=== PATIENT | male | born 1940 | race Caucasian/White ===

== ENCOUNTER → 2016-05-03 | Outpatient (REF) | payer OTHER ==
[~2016-05-03] MED LIST: ALIG4CAP PO; ALLE180T33 PO; ASPI1TAB24 PO; FISH1000 PO; LEVA500T PO; LEVO175T2 PO; LISI10TA4 PO; LOPR50TA PO; MOME50SP; PERCOCET PO; SIMV40TA2 PO; TERA5CA PO; TRAM50TA2 PO; XARE10TA PO
== END ==
LOC: M LABSMT 09:45
PROVIDERS: ATTEND Nurse Practitioner Women's Health
DX: C61 Malignant neoplasm of prostate (principal); Z79.899 Other long term (current) drug therapy

== ENCOUNTER → 2016-05-19 | Outpatient (REF) | payer OTHER ==
[~2016-05-19] MED LIST changes: +LOPR1TAB6 PO; -LOPR50TA PO
== END ==
LOC: M SFHCCLAY 09:48
PROVIDERS: ATTEND Nurse Practitioner Women's Health
DX: C61 Malignant neoplasm of prostate (principal)

== ENCOUNTER → 2016-06-26 | Outpatient (REF) | payer OTHER ==
[2016-06-26 11:35] LABS: ALBUMIN 3.8 GM/DL (3.2-5.2); ALBUMIN/GLOBULIN RATIO 1.23 (1.00-1.93); ALKALINE PHOSPHATASE 68 U/L (45-117); ALT/SGPT 31 U/L (12-78); ANION GAP 9 MEQ/L (8-16); AST/SGOT 23 U/L (15-37); BILIRUBIN,TOTAL 0.5 MG/DL (0.2-1.0); BLOOD UREA NITROGEN 16 MG/DL (7-18); CALCIUM LEVEL 9.1 MG/DL (8.8-10.2); CARBON DIOXIDE LEVEL 29 MEQ/L (21-32); CHLORIDE LEVEL 105 MEQ/L (98-107); CREATININE FOR GFR 0.91 MG/DL (0.70-1.30); GLOMERULAR FILTRATION RATE > 60.0 (>42); GLUCOSE, FASTING 89 MG/DL (83-110); POTASSIUM SERUM 4.4 MEQ/L (3.5-5.1); SODIUM LEVEL 143 MEQ/L (136-145); TOTAL PROTEIN 6.9 GM/DL (6.4-8.2)
== END ==
LOC: M SFHCCLAY 09:12
PROVIDERS: ATTEND Internal Medicine
DX: I10 Essential (primary) hypertension (principal)

== ENCOUNTER → 2016-07-13 | Outpatient (REF) | payer OTHER | LOC: M SFHCCLAY 10:03 | PROVIDERS: ATTEND Urology | DX: C61 Malignant neoplasm of prostate (principal) ==

== ENCOUNTER → 2016-10-10 | Outpatient (REF) | payer OTHER | LOC: M SFHCCLAY 08:44 | PROVIDERS: ATTEND Urology | DX: C61 Malignant neoplasm of prostate (principal) ==

== ENCOUNTER → 2017-01-08 | Outpatient (REF) | payer OTHER ==
[~2017-01-08] MED LIST changes: +ASPI-161 PO; -ASPI1TAB24 PO; +LEVA1TAB2 PO; -LEVA500T PO
[2017-01-08 14:09] LABS: MEAN CORPUSCULAR HEMOGLOBIN 29.7 pg (27.0-33.0); MEAN CORPUSCULAR VOLUME 92.8 fl (80.0-96.0); RED CELL DISTRIBUTION WIDTH 13.3 % (11.5-14.5); WHITE BLOOD COUNT 6.1 K/mm3 (4.0-10.0)
[2017-01-08 14:57] LABS: ALBUMIN/GLOBULIN RATIO 1.48 (1.00-1.93); ALKALINE PHOSPHATASE 61 U/L (45-117); ALT/SGPT 36 U/L (12-78); ANION GAP 9 MEQ/L (8-16); AST/SGOT 19 U/L (15-37); BILIRUBIN,TOTAL 0.6 MG/DL (0.2-1.0); BLOOD UREA NITROGEN 16 MG/DL (7-18); CALCIUM LEVEL 9.4 MG/DL (8.8-10.2); CARBON DIOXIDE LEVEL 28 MEQ/L (21-32); CHLORIDE LEVEL 106 MEQ/L (98-107); CHOLESTEROL LEVEL 153 MG/DL (<200); CREATININE FOR GFR 0.87 MG/DL (0.70-1.30); GLOMERULAR FILTRATION RATE > 60.0 (>42); GLUCOSE, FASTING 83 MG/DL (83-110); POTASSIUM SERUM 4.3 MEQ/L (3.5-5.1); SODIUM LEVEL 143 MEQ/L (136-145); TOTAL PROTEIN 6.7 GM/DL (6.4-8.2); TRIGLYCERIDES LEVEL 71 MG/DL (<150)
== END ==
LOC: M SFHCPLAZ 10:05
PROVIDERS: ATTEND Internal Medicine
DX: C61 Malignant neoplasm of prostate (principal); I10 Essential (primary) hypertension; E78.00 Pure hypercholesterolemia, unspecified
CPT/HCPCS: 36415; 80053; 80061; 83735; 84443; 85027; G0463

== ENCOUNTER → 2017-01-16 | Outpatient (CLI) | payer OTHER | LOC: M SMT 14:15 | PROVIDERS: ATTEND Urology | DX: Z85.46 Personal history of malignant neoplasm of prostate (principal) ==

== ENCOUNTER → 2017-04-16 | Outpatient (REF) | payer OTHER | LOC: M SFHCCLAY 14:10 | PROVIDERS: ATTEND Urology | DX: Z85.46 Personal history of malignant neoplasm of prostate (principal) ==

== ENCOUNTER → 2017-07-04 | Outpatient (REF) | payer OTHER ==
[2017-07-04 14:10] LABS: ALBUMIN 3.8 GM/DL (3.2-5.2); ALBUMIN/GLOBULIN RATIO 1.31 (1.00-1.93); ALKALINE PHOSPHATASE 62 U/L (45-117); ALT/SGPT 65 U/L (12-78); ANION GAP 8 MEQ/L (8-16); AST/SGOT 32 U/L (7-37); BILIRUBIN,TOTAL 0.7 MG/DL (0.2-1.0); BLOOD UREA NITROGEN 19 MG/DL (7-18); CALCIUM LEVEL 8.7 MG/DL (8.8-10.2); CARBON DIOXIDE LEVEL 28 MEQ/L (21-32); CHLORIDE LEVEL 106 MEQ/L (98-107); CREATININE FOR GFR 0.92 MG/DL (0.70-1.30); GLOMERULAR FILTRATION RATE > 60.0 (>42); GLUCOSE, FASTING 83 MG/DL (70-100); MAGNESIUM LEVEL 2.1 MG/DL (1.8-2.4); POTASSIUM SERUM 4.4 MEQ/L (3.5-5.1); SODIUM LEVEL 142 MEQ/L (136-145); TOTAL PROTEIN 6.7 GM/DL (6.4-8.2)
== END ==
LOC: M SFHCCLAY 07:54
DX: I10 Essential (primary) hypertension (principal)
CPT/HCPCS: 83735

== ENCOUNTER 2017-10-08 10:25 | Day surgery (SDC) | payer OTHER ==
[2017-10-08] MEDS ORDERED: PROPOFOL 200 MG/20 ML VIAL As Ordered (10:30)
[2017-10-08] MEDS: NS 1,000 ML IV (10:45)
== END 2017-10-08 11:51 | disposition home or self-care (01) ==
LOC: M OPP 10:25
DX: Z12.11 Encounter for screening for malignant neoplasm of colon (principal); K57.30 Diverticulosis of large intestine without perforation or abscess without bleeding; Z86.010 Personal history of colon polyps; I10 Essential (primary) hypertension; E78.5 Hyperlipidemia, unspecified; E05.91 Thyrotoxicosis, unspecified with thyrotoxic crisis or storm; R23.3 Spontaneous ecchymoses; I25.10 Atherosclerotic heart disease of native coronary artery without angina pectoris; I48.91 Unspecified atrial fibrillation; Z79.01 Long term (current) use of anticoagulants; Z79.82 Long term (current) use of aspirin; Z79.899 Other long term (current) drug therapy; Z88.0 Allergy status to penicillin; Z88.8 Allergy status to other drugs, medicaments and biological substances; J30.2 Other seasonal allergic rhinitis; Z92.3 Personal history of irradiation; Z87.891 Personal history of nicotine dependence; Z80.3 Family history of malignant neoplasm of breast; Z80.1 Family history of malignant neoplasm of trachea, bronchus and lung; Z82.49 Family history of ischemic heart disease and other diseases of the circulatory system
CPT/HCPCS: G0105

== ENCOUNTER → 2017-11-06 | Outpatient (REF) | payer OTHER ==
[2017-11-11 09:05] LABS: PSA TOTAL <0.1 ng/mL (0.0-4.0)
== END ==
LOC: M SFHCCLAY 13:27
DX: Z85.46 Personal history of malignant neoplasm of prostate (principal)
CPT/HCPCS: 84154

== ENCOUNTER 2017-11-21 12:58 | Day surgery (SDC) | payer OTHER ==
[2017-11-21] MEDS ORDERED: LIDOCAINE 1% MDV 20ML VIAL SQ (13:15)
[2017-11-21] MEDS: ISOVUE-300 61% 50ML VIAL (Q9967) As Ordered (13:23)
[2017-11-21] MEDS: VANCOMYCIN 1000 MG/20 ML VIAL (J3370) As Ordered (13:23)
[2017-11-21] MEDS: LR 1,000 ML IV ×2 (14:01→19:39)
[2017-11-21] MEDS ORDERED: PROPOFOL 200 MG/20 ML VIAL As Ordered ×3 (14:39→17:05)
[2017-11-21] MEDS ORDERED: fentaNYL 100 MCG/2 ML INJECTION (J3010) As Ordered (14:40)
[2017-11-21] MEDS ORDERED: MIDAZOLAM INJ 2 MG/2 ML VIAL (J2250) As Ordered (14:40)
[2017-11-21] MEDS: VANCOMYCIN HCL 1,000 MG, VIAL MATE ADAPTER 1 EACH in D5W 250 ML IV (14:56)
[2017-11-21] MEDS: LIDOCAINE 1% SDV INJ 30 ML VIAL As Ordered (16:12)
[2017-11-21] MEDS ORDERED: ONDANSETRON 4MG/2ML VIAL (J2405) As Ordered (17:36)
[2017-11-21] MEDS ORDERED: dexameTHASONE 4 MG/ML 1ML VIAL (J1100) As Ordered (17:36)
[2017-11-21] MEDS ORDERED: KETOROLAC 60 MG/2 ML VIAL (J1885) As Ordered (17:36)
[2017-11-21] MEDS: MUPIROCIN 2% OINT 22 GM TUBE As Ordered (17:38)
[2017-11-21] MEDS ORDERED: fentaNYL 100 MCG/2 ML INJECTION (J3010) IV (18:30)
[2017-11-21] MEDS ORDERED: ONDANSETRON 4MG/2ML VIAL (J2405) IV (18:30)
[2017-11-21] MEDS ORDERED: PERCOCET 5MG/325MG TAB PO (18:30)
[2017-11-21] MEDS ORDERED: traMADol 50 MG TAB PO (19:00)
[2017-11-21] MEDS: LISINOPRIL 10 MG TAB PO (20:39)
[2017-11-21] MEDS: ASPIRIN 81 MG ENTERIC TAB PO (20:39)
[2017-11-21] MEDS: SIMVASTATIN 40 MG TAB PO (20:40)
[2017-11-21] MEDS: FLUTICASONE PROP 0.05% NASAL SPRAY 16 GM (FLONASE) NARES (20:40)
[2017-11-22] MEDS: LEVOTHYROXINE 100MCG TABLET (0.1MG) PO (05:21)
[2017-11-22] MEDS: LEVOTHYROXINE 75MCG TABLET (0.075MG) PO (05:21)
[2017-11-22] MEDS: ASPIRIN 81 MG ENTERIC TAB PO (09:40)
[2017-11-22] MEDS: LISINOPRIL 10 MG TAB PO (09:41)
[2017-11-22] MEDS: ACETAMINOPHEN TAB 650MG DOSE (2X325MG) PO (09:42)
[2017-11-22] MEDS: FLUTICASONE PROP 0.05% NASAL SPRAY 16 GM (FLONASE) NARES (09:42)
== END 2017-11-22 16:08 | disposition home or self-care (01) ==
LOC: M SDC 12:58 → M PCU 18:46
DX: I49.5 Sick sinus syndrome (principal); I44.0 Atrioventricular block, first degree; I48.0 Paroxysmal atrial fibrillation; R07.9 Chest pain, unspecified; R94.31 Abnormal electrocardiogram [ECG] [EKG]; E78.00 Pure hypercholesterolemia, unspecified; E66.3 Overweight; I25.10 Atherosclerotic heart disease of native coronary artery without angina pectoris; I25.2 Old myocardial infarction; I11.9 Hypertensive heart disease without heart failure; E03.9 Hypothyroidism, unspecified; E27.8 Other specified disorders of adrenal gland; K57.32 Diverticulitis of large intestine without perforation or abscess without bleeding; K21.9 Gastro-esophageal reflux disease without esophagitis; R29.898 Other symptoms and signs involving the musculoskeletal system; M12.9 Arthropathy, unspecified; M54.2 Cervicalgia; J32.9 Chronic sinusitis, unspecified; Z88.1 Allergy status to other antibiotic agents; Z88.8 Allergy status to other drugs, medicaments and biological substances; Z79.899 Other long term (current) drug therapy; Z79.01 Long term (current) use of anticoagulants; Z79.82 Long term (current) use of aspirin; Z86.010 Personal history of colon polyps; Z95.1 Presence of aortocoronary bypass graft; Z87.442 Personal history of urinary calculi; Z92.3 Personal history of irradiation; Z85.46 Personal history of malignant neoplasm of prostate
CPT/HCPCS: 33208

== ENCOUNTER → 2018-01-08 | Outpatient (REF) | payer OTHER ==
[2018-01-08 11:52] LABS: HEMATOCRIT 43.7 % (42.0-52.0); HEMOGLOBIN 14.2 g/dl (13.5-17.5); MEAN CORPUSCULAR HEMOGLOBIN 29.5 pg (27.0-33.0); MEAN CORPUSCULAR HGB CONC 32.5 g/dl (32.0-36.5); MEAN CORPUSCULAR VOLUME 90.7 fl (80.0-96.0); RED BLOOD COUNT 4.82 10^6/uL (4.30-6.10); WHITE BLOOD COUNT 5.7 10^3/uL (4.0-10.0)
[2018-01-08 12:20] LABS: POS COUNT POS FLAG
[2018-01-08 13:06] LABS: ALBUMIN 3.9 GM/DL (3.2-5.2); ALKALINE PHOSPHATASE 70 U/L (45-117); ALT/SGPT 27 U/L (12-78); ANION GAP 7 MEQ/L (8-16); AST/SGOT 16 U/L (7-37); BILIRUBIN,TOTAL 0.4 MG/DL (0.2-1.0); BLOOD UREA NITROGEN 20 MG/DL (7-18); CARBON DIOXIDE LEVEL 27 MEQ/L (21-32); CHLORIDE LEVEL 107 MEQ/L (98-107); CHOLESTEROL LEVEL 155 MG/DL (<200); CREATININE FOR GFR 0.81 MG/DL (0.70-1.30); GLOMERULAR FILTRATION RATE > 60.0 (>42); GLUCOSE, FASTING 88 MG/DL (70-100); HDL CHOLESTEROL 50 MG/DL (>40); LDL CHOLESTEROL 92 MG/DL (<100); MAGNESIUM LEVEL 2.2 MG/DL (1.8-2.4); NON-HDL-C 105 MG/DL; POTASSIUM SERUM 4.6 MEQ/L (3.5-5.1); SODIUM LEVEL 141 MEQ/L (136-145); TOTAL PROTEIN 6.6 GM/DL (6.4-8.2); TRIGLYCERIDES LEVEL 66 MG/DL (<150)
[2018-01-08 15:39] LABS: ALBUMIN/GLOBULIN RATIO 1.44 (1.00-1.93)
== END ==
LOC: M SFHCCLAY 07:39
DX: Z85.46 Personal history of malignant neoplasm of prostate (principal); I10 Essential (primary) hypertension; E78.00 Pure hypercholesterolemia, unspecified; E03.9 Hypothyroidism, unspecified
CPT/HCPCS: 83735

== ENCOUNTER → 2018-02-05 | Outpatient (REF) | payer OTHER ==
[2018-02-05 17:48] LABS: PROSTATIC SPECIFIC AG MONITOR < 0.01 NG/ML (< 4.0)
== END ==
LOC: M SFHCCLAY 13:16
DX: Z85.46 Personal history of malignant neoplasm of prostate (principal)
CPT/HCPCS: 84153

== ENCOUNTER → 2018-05-09 | Outpatient (REF) | payer MEDICARE ==
[~2018-05-09] MED LIST changes: +ASCO25TA PO; +ATEN25TA PO; +FISH500C PO; +META48.54 PO; +METO1TAB32 PO; -TERA5CA PO; +TERA5CAP3 PO; +XARE20TA PO
== END ==
LOC: M SFHCCLAY 13:11
PROVIDERS: ATTEND Internal Medicine
DX: Z85.46 Personal history of malignant neoplasm of prostate (principal)

== ENCOUNTER → 2018-07-09 | Outpatient (REF) | payer MEDICARE ==
[2018-07-09 18:36] LABS: BASO # 0.1 10^3/uL (0.0-0.2); BASO % 0.8 % (0.0-1.0); EOS # 0.2 10^3/uL (0.0-0.50); HEMOGLOBIN 15.6 g/dl (13.5-17.5); LYMPH # 1.5 10^3/uL (1.5-4.5); LYMPH % 20.2 % (24.0-44.0); MEAN CORPUSCULAR HEMOGLOBIN 29.8 pg (27.0-33.0); MEAN CORPUSCULAR HGB CONC 32.5 g/dl (32.0-36.5); MEAN CORPUSCULAR VOLUME 91.8 fl (80.0-96.0); MONO # 0.7 10^3/uL (0.0-0.8); MONO % 8.9 % (0.0-5.0); NEUTROPHILS % 67.7 % (36.0-66.0); RED BLOOD COUNT 5.23 10^6/uL (4.30-6.10); WHITE BLOOD COUNT 7.4 10^3/uL (4.0-10.0)
[2018-07-09 18:43] LABS: ALBUMIN 4.3 GM/DL (3.2-5.2); ALT/SGPT 32 U/L (12-78); BILIRUBIN,TOTAL 0.8 MG/DL (0.2-1.0); BLOOD UREA NITROGEN 17 MG/DL (7-18); CALCIUM LEVEL 9.2 MG/DL (8.8-10.2); CARBON DIOXIDE LEVEL 30 MEQ/L (21-32); CHLORIDE LEVEL 102 MEQ/L (98-107); CREATININE FOR GFR 0.98 MG/DL (0.70-1.30); GLOMERULAR FILTRATION RATE > 60.0 (>42); GLUCOSE, FASTING 90 MG/DL (70-100); MAGNESIUM LEVEL 2.3 MG/DL (1.8-2.4); POTASSIUM SERUM 4.6 MEQ/L (3.5-5.1); SODIUM LEVEL 138 MEQ/L (136-145); TOTAL PROTEIN 7.3 GM/DL (6.4-8.2)
[2018-07-09 18:49] LABS: FOLATE 15.5 NG/ML; VITAMIN B12 LEVEL 498 PG/ML
== END ==
LOC: M LABDRAWC 16:10 → M LABDRAW1 16:10
PROVIDERS: ATTEND Internal Medicine
DX: D69.6 Thrombocytopenia, unspecified (principal); I10 Essential (primary) hypertension

== ENCOUNTER → 2018-11-05 | Outpatient (REF) | payer MEDICARE ==
[~2018-11-05] MED LIST changes: -ASCO25TA PO; +VITA1TAB23 PO
== END ==
LOC: M SFHCCLAY 11:17
PROVIDERS: ATTEND Nurse Practitioner Women's Health
DX: Z85.46 Personal history of malignant neoplasm of prostate (principal)

== ENCOUNTER → 2019-01-07 | Outpatient (REF) | payer MEDICARE ==
[2019-01-07 13:24] LABS: BASO # 0.1 10^3/uL (0.0-0.2); BASO % 1.2 % (0.0-1.0); EOS # 0.3 10^3/uL (0.0-0.5); EOS % 5.3 % (0.0-3.0); HEMATOCRIT 45.8 % (42.0-52.0); HEMOGLOBIN 14.9 g/dl (13.5-17.5); LYMPH # 1.2 10^3/uL (1.5-5.0); LYMPH % 23.9 % (24.0-44.0); MEAN CORPUSCULAR HGB CONC 32.5 g/dl (32.0-36.5); MEAN CORPUSCULAR VOLUME 92.3 fl (80.0-96.0); MONO # 0.5 10^3/uL (0.0-0.8); MONO % 9.3 % (0.0-5.0); NEUTROPHILS # 3.1 10^3/uL (1.5-8.5); NEUTROPHILS % 59.7 % (36.0-66.0); RED BLOOD COUNT 4.96 10^6/uL (4.30-6.10); WHITE BLOOD COUNT 5.1 10^3/uL (4.0-10.0)
[2019-01-07 14:20] LABS: ALT/SGPT 23 U/L (12-78); BILIRUBIN,TOTAL 0.7 MG/DL (0.2-1.0); BLOOD UREA NITROGEN 14 MG/DL (7-18); CALCIUM LEVEL 9.1 MG/DL (8.8-10.2); CARBON DIOXIDE LEVEL 29 MEQ/L (21-32); CHLORIDE LEVEL 105 MEQ/L (98-107); CHOLESTEROL LEVEL 164 MG/DL (<200); CHOLESTEROL RISK RATIO 3.153 (<5); CREATININE FOR GFR 0.96 MG/DL (0.70-1.30); GLOMERULAR FILTRATION RATE > 60.0 (>42); GLUCOSE, FASTING 98 MG/DL (70-100); HDL CHOLESTEROL 52 MG/DL (>40); LDL CHOLESTEROL 94 MG/DL (<100); MAGNESIUM LEVEL 2.1 MG/DL (1.8-2.4); NON-HDL-C 112 MG/DL; POTASSIUM SERUM 4.5 MEQ/L (3.5-5.1); SODIUM LEVEL 141 MEQ/L (136-145); TOTAL PROTEIN 6.6 GM/DL (6.4-8.2); TRIGLYCERIDES LEVEL 92 MG/DL (<150)
== END ==
LOC: M SFHCCLAY 07:33
PROVIDERS: ATTEND Internal Medicine
DX: D69.6 Thrombocytopenia, unspecified (principal); I10 Essential (primary) hypertension; E78.00 Pure hypercholesterolemia, unspecified; Z86.010 Personal history of colon polyps; E03.9 Hypothyroidism, unspecified

== ENCOUNTER → 2019-05-13 | Outpatient (REF) | payer MEDICARE ==
[~2019-05-13] MED LIST changes: -SIMV40TA2 PO; +SIMV40TA20 PO
== END ==
LOC: M SFHCCLAY 13:01
PROVIDERS: ATTEND Nurse Practitioner Women's Health
DX: Z85.46 Personal history of malignant neoplasm of prostate (principal)

== ENCOUNTER 2019-06-02 04:31 | Observation (INO) | payer MEDICARE ==
[~2019-06-02] VITALS: Ht 180.3 cm; Wt 89.5 kg
[2019-06-02] MEDS ORDERED: LEVOTHYROXINE 150MCG TABLET (0.15MG) PO SCH (06:00)
[2019-06-02 06:35] VITALS: BP 146/90
[2019-06-02] MEDS ORDERED: MAALOX 30 ML SUSP *UDC PO PRN (06:45)
[2019-06-02] MEDS ORDERED: ACETAMINOPHEN TAB 650MG DOSE (2X325MG) PO PRN (06:45)
[2019-06-02] MEDS ORDERED: MOM 30ML SUSPENSION UDC PO PRN (06:45)
[2019-06-02 07:15] LABS: HEMATOCRIT 40.6 % (42.0-52.0); HEMOGLOBIN 13.4 g/dl (13.5-17.5); MEAN CORPUSCULAR VOLUME 90.8 fl (80.0-96.0); PLATELET COUNT, AUTOMATED 159 10^3/uL (150-450); RED BLOOD COUNT 4.47 10^6/uL (4.30-6.10); WHITE BLOOD COUNT 8.3 10^3/uL (4.0-10.0)
[2019-06-02 07:47] LABS: BLOOD UREA NITROGEN 13 MG/DL (7-18); CALCIUM LEVEL 8.3 MG/DL (8.8-10.2); CARBON DIOXIDE LEVEL 29 MEQ/L (21-32); CHLORIDE LEVEL 107 MEQ/L (98-107); CREATININE FOR GFR 0.88 MG/DL (0.70-1.30); GLOMERULAR FILTRATION RATE > 60.0 (>42); GLUCOSE, FASTING 95 MG/DL (70-100); NT-PRO BNP 431 PG/ML (<450); POTASSIUM SERUM 3.9 MEQ/L (3.5-5.1); SODIUM LEVEL 143 MEQ/L (136-145); TROPONIN I < 0.02 NG/ML (< 0.10)
[2019-06-02] MEDS ORDERED: ACET650T15 PO (08:14)
[2019-06-02] MEDS ORDERED: [UNRECOGNIZED DRUG - CODE] OU (08:14)
[2019-06-02] MEDS ORDERED: HEPARIN SOD (PORCINE) 5000 UNITS/ML VIAL (J1644 PER 1000UNITS) SC SCH (09:00)
[2019-06-02] MEDS ORDERED: FLUTICASONE PROP 0.05% NASAL SPRAY 16 GM (FLONASE) SCH (09:00)
[2019-06-02] MEDS ORDERED: GI COCKTAIL 50ML BTL(HYOSCYAMINE/MAALOX/LIDOCAINE VISCOUS)(1:3:1) PO ONE (09:00)
[2019-06-02] MEDS ORDERED: lisinopriL 10 MG TAB PO SCH (09:00)
[2019-06-02] MEDS ORDERED: METAMUCIL (PSYLLIUM) PACKET PO SCH (09:00)
[2019-06-02] MEDS ORDERED: ASPIRIN 81 MG ENTERIC TAB PO SCH (09:00)
[2019-06-02] MEDS ORDERED: DOCUSATE SODIUM 100 MG CAP PO SCH (09:00)
--- NOTE | 2019-06-02 11:07 | REP ---
Right upper quadrant ultrasound, stat request: There are multiple small linear calculi versus polyps along the gallbladder wall measuring 3 mm in diameter. There is no gallbladder wall thickening or pericholecystic fluid. There is no intrahepatic or extrahepatic biliary duct dilatation. The common biliary duct measures 4.5 mm in diameter. The hepatic parenchyma is homogeneous and otherwise unremarkable. The pancreas is obscured by bowel gas. The right kidney measures 10.8 x 4.5 x 6.0 cm and is normal size. There is no right renal hydronephrosis or calculus. There is no right renal solid mass. The there is a 2.0 cm Bosniak type 1 right renal cyst at the upper pole. There is no right upper quadrant ascites. Impression: There are multiple polyps versus adherent calculi in the gallbladder measuring approximate 3 mm in diameter each. No ultrasound evidence of acute cholecystitis or biliary duct dilatation. There is a 2.0 cm Bosniak type 1 right renal cyst at the upper pole. Electronically Signed by Bahnu Aguayo MD 06/02/2019 10:58 A
--- NOTE | 2019-06-02 11:13 | HPEPDOC ---
[facility] Medical History & Physical Date of Admission Jun 02, 2019 Date of Service: Jun 02, 2019 Attending Physician: CHARISSA AMOR MD History and Physical CHIEF COMPLAINT: Chest pain, shortness of breath transfer from [facility] HISTORY OF PRESENT ILLNESS: Patient is a 79-year-old man with a past medical history significant for atrial flutter, status post pacemaker, degenerative joint disease, hypercholesterolemia, hypertension, hypothyroidism, diverticulosis, presents as a tranfer [facility] after he presented with chest pain that started day before. Patient had reported a right sided chest p ain, That awoke him from sleep. It was accompanied by shortness of breath. On presentation to [facility]. He denied nausea, vomiting or diaphoresis. Due to patient's history of coronary disease with a bypass in 1997, he was transferred to [facility] for ongoing medical care. Prior to transfer. Patient had a negative workup, to include negative chest x-ray, negative troponin, and EKG without any ST changes. EKG was sinus at a rate of 80 with Q waves in the inferior lead. Prior to transfer. Patient had also reported that his chest Resolved. On interview this morning patient reports that his chest pain had resolved, he did complain of epigastric pain that was unassociated with food. Denies any nausea, vomiting, diarrhea recently. Denies any changes in diet. Denies any ana ght gain, denies any significant weight loss. Denies any GI bleeding. He does have a history of diverticulosis, and states that he alternates between diarrhea and constipation. However recently he has been having normal bowel movements without blood in stool PAST MEDICAL HISTORY: Atrial flutter, chest pain, chest wall pain, degenerative joint disease, hypercholesterolemia, hypertension, hypothyroidism PAST SURGICAL HISTORY: Double cardiac bypass in 1997, hernia repair, rotator cuff surgery SOCIAL HISTORY: Former smoker, former heavy alcohol user, no illicit drugs, lives at home with FAMILY HISTORY: Noncontributory due to advanced age ALLERGIES: Please see below. REVIEW OF SYSTEMS: CONSTITUTIONAL: No fevers, denies chills, denies weight loss, denies lethargy HEENT: No rhinorrhea, no itchy eyes, no congesion, No tonsilor exudates CARDIOVASCULAR: Had chest pain that has evolved, no palpitation, arrhythmia RESPIRATORY: Not cough, No SOB, no issues to report GASTROINTESTINAL: Admits to abdominal pain without nausea without vomiting without diarrhea. No difficulty swallowing HEMATOLOGICAL: No bleeding GENITOURINARY:No Issues HEMATOLOGIC/LYMPHATIC: No swelling, No bleeding HOME MEDICATIONS: Please see below. PHYSICAL EXAMINATION: VITAL SIGNS: Please see below SKIN: Warm, well perfused. LUNGS: Clear to auscultation bilaterally. HEART: Normal S1, S2. No murmurs, no rubs, no gallops ABDOMEN: Soft. Mild tenderness noted on patient's left lower quadrant, negative Plasencia sign. EXTREMITIES: Moves all extremities equally. No gross deformities. PULSES: 2+ upper and lower extremity LABORATORY DATA: See below. IMAGING: Gallbladder ultrasound pending Upper GI with small bowel follow-through and MICROBIOLOGY: Please see below. ASSESSMENT: Patient is a 79-year-old man presenting as hospital transfer for chest pain that had resolved prior to transfer. EKG was unremarkable with exception of Q waves in inferior leads, troponins was negative prior to transfer. Patient does not have any cardiac complaints at the moment. Complains of abdominal pain PLAN #Chest pain, -Troponins negative prior to admission. Troponins here has also been negative. Patient denies any chest pain for the moment. EKG does not show any acute changes. unlikely cardiac origin of pain will evaluate for abdominal and esophageal causes of pain. Could also be musculoskeletal in nature. #Abdominal pain secondary to diverticulosis secondary to gallbladder disease, secondary to constipation -Will Investigate with gallbladder ultrasound, as well as abdominal GI upper series. -Currently nothing by mouth for tests -Pain is adequately controlled #A Flutter -Sinus rhythm on monitor with occasional PVCs. Patient is status post pacemaker, follows with Dr. Corado for cardiology #Hypertension -Continue home meds #Hypothyroidism -Continue home meds #DVT prophylaxis - Heparin Vital Signs Vital Signs Date Time Temp Pulse Resp B/P (MAP) Pulse Ox O2 Delivery O2 Flow Rate FiO2 06/02/19 06:35 97.6 77 20 146/90 (108) 100 Room Air Laboratory Data Labs 24H Laboratory Tests 2 06/02/19 07:05: Nucleated Red Blood Cells % (auto) 0.0, Anion Gap 7L, Glomerular Filtration Rate > 60.0, Calcium Level 8.3L, Troponin I < 0.02, RX-Rmn-O-Type Natriuretic Peptide 431 CBC/BMP Laboratory Tests 06/02/19 07:05 Home Medications Scheduled Aspirin (Aspirin EC) 81 Mg Tab, 81 MG PO DAILY Levothyroxine Sodium (Levothyroxine Sodium) 175 Mcg Tab, 175 MCG PO 6XWK SKIPS Sunday Lisinopril (Lisinopril) 10 Mg Tab, 10 MG PO DAILY Mometasone Furoate Monohydrate (Nasonex) 120 [place]/17 Gm Naspr, 2 SPRAY NA DAILY Psyllium Seed (with Sugar) (Metamucil Powder) 48.57 % Pow, 1 PKT PO DAILY Rivaroxaban (Xarelto) 20 Mg Tab, 20 MG PO QPM Simvastatin (Simvastatin) 40 Mg Tab, 40 MG PO QHS Scheduled PRN Acetaminophen (Acetaminophen ER) 650 Mg Tablet.er, 650 MG PO TID PRN for PAIN Fexofenadine HCl (Pepper Allergy) 180 Mg Tab, 180 MG PO DAILYPRN PRN for NASAL CONGESTION Naphazoline/Hpm/Ps80/Zinc Sulf (Clear Eyes Complete Eye Drops) 15 Ml Drops, 1 DROP OU BID PRN for DRY EYES Allergies Coded Allergies: atorvastatin (Verified Adverse Reaction, Intermediate, muscle aches, 2/3) amoxicillin (Verified Adverse Reaction, Mild, NAUSEA, 2/3) clavulanic acid (Verified Adverse Reaction, Mild, NAUSEA, 2/3) Attending Note I have performed a history and physical examination of the patient and discussed the management with the resident. I have reviewed the resident's note and agree with the documented findings and the plan of care. EMMA STONE DO Jun 02, 2019 11:13 CHARISSA AMOR MD Jun 08, 2019 19:00
[2019-06-02] MEDS ORDERED: FEXOFENADINE 60 MG TAB PO PRN (11:15)
[2019-06-02 14:00] VITALS: BP 151/71
--- NOTE | 2019-06-02 18:22 | DS.PDOC ---
Discharge Summary General Date of Admission Jun 02, 2019 at 06:35 Date of Discharge 06/02/2019 Discharge Summary PROCEDURES PERFORMED DURING STAY: Chest pain, Transfer for [facility] ADMITTING DIAGNOSES: 1. Chest Pain 2. SOB DISCHARGE DIAGNOSES: Biliary colic now resolved. Multiple gall stones vs gall bladder polyps Possible acid reflux. Chest pain probably GI causes Acute coronary syndrome ruled out. SECONDARY DIAGNOSIS: Paroxysmal Atrial flutter Sick sinus syndrome with Pacemaker in place CAD s/p CABG Degenerative joint disease Hypercholesterolemia Hypertension Hypothyroidism COMPLICATIONS/CHIEF COMPLAINT: Chest Pain. HISTORY OF PRESENT ILLNESS: Patient is a 79-year-old man with a past medical history significant for atrial flutter, status post pacemaker, degenerative joint disease, hypercho lesterolemia, hypertension, hypothyroidism, diverticulosis, presents as a [facility] after he presented with chest pain that started day before. Patient had reported a right sided chest pain, That awoke him from sleep. It was accompanied by shortness of breath. [facility]. He denied nausea, vomiting or diaphoresis. Due to patient's history of coronary disease with a bypass in 1997, he was transferred to [facility] for ongoing medical care. Prior to transfer. Patient had a negative workup, to include negative chest x-ray, negative troponin, and EKG without any ST changes. EKG was sinus at a rate of 80 with Q waves in the inferior lead. Prior to transfer. Patient had also reported that his chest Resolved. On interview this morning patient reports that his chest pain had resolved, he did complain of epigastric pain that was associated with food spicy and oily food. Denies any nausea, vomiting, diarrhea recently. Denies any changes in t. Denies any weight gain, denies any significant weight loss. Denies any GI bleeding. He does have a history of diverticulosis, and states that he alternates between diarrhea and constipation. However recently he has been having normal bowel movements without blood in stool HOSPITAL COURSE: During the entirety of patient's admission. He denies chest pain. EKG was unremarkable. Troponins x2 were negative. Acute coronary syndrome was ruled out. He did however complain of abdominal pain. Abdominal pain was investigated with gallbladder ultrasound, which showed multiple polyps versus adherent calculi in the gallbladder measuring approximate 3 mm in diameter each. No ultrasound evidence of acute cholecystitis or biliary duct dilatation.. Because abdominal pain was almost resolved and the patient tolerated diet patient was felt safe to discharge home with instructions to follow-up for upper GI series. Patient verbalized understanding of the plan. He was discharged home in stable condition, with instructions to seek medical help should he develop severe abdominal pain, blood in stool, nausea, vomiting, diarrhea, worsening chest pain or short of breath. Patient verbalized understanding. He was instructed to follow-up with his PCP and tube roller at discharge. DISCHARGE MEDICATIONS: Please see below. ALLERGIES: Please see below. PHYSICAL EXAMINATION ON DISCHARGE: VITAL SIGNS: Please see below SKIN: Warm, well perfused. LUNGS: Clear to auscultation bilaterally. HEART: Normal S1, S2. No murmurs, no rubs, no gallops ABDOMEN: Soft. Mild tenderness noted on patient's left lower quadrant, negative Plasencia sign. EXTREMITIES: Moves all extremities equally. No gross deformities. PULSES: 2+ upper and lower extremity LABORATORY DATA: Please see below. IMAGING: Gall Bladder US: There are multiple polyps versus adherent calculi in the gallbladder measuring approximate 3 mm in diameter each. No ultrasound evidence of acute cholecystitis or biliary duct dilatation. There is a 2.0 cm Bosniak type 1 right renal cyst at the upper pole. PROGNOSIS: Fair ACTIVITY:As tolerated DIET: As tolerated DISCHARGE PLAN: To home DISPOSITION: Stable DISCHARGE INSTRUCTIONS: Follow up PCP in 1 to 2 weeks Referral to Surgery for evaluation for possible cholecystectomy Complete Upper Barium swallow and upper GI series with small bowel follow through DISCHARGE CONDITION: Stable TIME SPENT ON DISCHARGE: 35 minutes. Vital Signs/I&Os Vital Signs Date Time Temp Pulse Resp B/P (MAP) Pulse Ox O2 Delivery O2 Flow Rate FiO2 06/02/19 14:00 98.2 81 20 151/71 (97) 99 Room Air Laboratory Data Labs 24H Laboratory Tests 2 06/02/19 07:05: Nucleated Red Blood Cells % (auto) 0.0, Anion Gap 7L, Glomerular Filtration Rate > 60.0, Calcium Level 8.3L, Troponin I < 0.02, NM-Lxn-J-Type Natriuretic Peptide 431 06/02/19 12:35: Troponin I < 0.02 CBC/BMP Laboratory Tests 06/02/19 07:05 Discharge Medications Scheduled Aspirin (Aspirin EC) 81 Mg Tab, 81 MG PO DAILY, (Reported) Levothyroxine Sodium (Levothyroxine Sodium) 175 Mcg Tab, 175 MCG PO 6XWK, (Reported) SKIPS Sunday Lisinopril (Lisinopril) 10 Mg Tab, 10 MG PO DAILY, (Reported) Mometasone Furoate Monohydrate (Nasonex) 120 [place]/17 Gm Naspr, 2 SPRAY NA DAILY, (Reported) Psyllium Seed (with Sugar) (Metamucil Powder) 48.57 % Pow, 1 PKT PO DAILY, (Reported) Rivaroxaban (Xarelto) 20 Mg Tab, 20 MG PO QPM, (Reported) Simvastatin (Simvastatin) 40 Mg Tab, 40 MG PO QHS, (Reported) Scheduled PRN Acetaminophen (Acetaminophen ER) 650 Mg Tablet.er, 650 MG PO TID PRN for PAIN, (Reported) Fexofenadine HCl (Pepper Allergy) 180 Mg Tab, 180 MG PO DAILYPRN PRN for NASAL CONGESTION, (Reported) Naphazoline/Hpm/Ps80/Zinc Sulf (Clear Eyes Complete Eye Drops) 15 Ml Drops, 1 DROP OU BID PRN for DRY EYES, (Reported) Allergies Coded Allergies: atorvastatin (Verified Adverse Reaction, Intermediate, muscle aches, 2/3) amoxicillin (Verified Adverse Reaction, Mild, NAUSEA, 2/07/17) clavulanic acid (Verified Adverse Reaction, Mild, NAUSEA, 2) Attending Note I personally saw and examined the patient. I have reviewed the documentation above by the resident and agree with the plan of care. I spent 35 mins in counselling and coordinating the patient's discharge. Admission and discharge services were provided on the same calendar date greater than 8 hours apart. EMMA STONE DO Jun 02, 2019 18:22 CHARISSA AOMR MD Jun 02, 2019 18:45
--- NOTE | 2019-06-02 20:52 | ECGEPIP ---
[facility] Test Date: 2019-06-02 Pat Name: CARLA HUERTA Department: Room: [place] [address] Gender: Male Maintenance Associate: MARIE : 1940 Requested By: EMMA STONE Order Number: [id number] Reading MD: Jesus Strickland Measurements Intervals [place] Rate: 71 P: 143 [place]: 204 QRS: -52 QRSD: 120 T: 65 QT: 388 QTc: 424 Interpretive Statements ELECTRONIC ATRIAL PACEMAKER LEFT ANTERIOR FASCICULAR BLOCK MINIMAL CHANGE SINCE 11/21/2017 Electronically Signed on 06-02-2019 20:52:21 EST by Jesus Strickland
[2019-06-02] MEDS ORDERED: SIMVASTATIN 40 MG TAB PO SCH (21:00)
[2019-06-02] MEDS ORDERED: RIVAROXABAN 20 MG TAB (XARELTO) PO SCH (21:00)
== END 2019-06-02 16:50 | disposition home or self-care (01) ==
LOC: M MSPAV 06:35
PROVIDERS: ADMIT Internal Medicine; ATTEND Internal Medicine
DX: K80.50 Calculus of bile duct without cholangitis or cholecystitis without obstruction (principal); R93.5 Abnormal findings on diagnostic imaging of other abdominal regions, including retroperitoneum; R07.9 Chest pain, unspecified; I48.3 Typical atrial flutter; I49.5 Sick sinus syndrome; Z95.0 Presence of cardiac pacemaker; I25.10 Atherosclerotic heart disease of native coronary artery without angina pectoris; Z95.1 Presence of aortocoronary bypass graft; M19.90 Unspecified osteoarthritis, unspecified site; E78.00 Pure hypercholesterolemia, unspecified; I11.9 Hypertensive heart disease without heart failure; E03.9 Hypothyroidism, unspecified; R06.02 Shortness of breath; R10.13 Epigastric pain; K57.90 Diverticulosis of intestine, part unspecified, without perforation or abscess without bleeding; Z79.899 Other long term (current) drug therapy; Z79.82 Long term (current) use of aspirin; Z79.01 Long term (current) use of anticoagulants; Z88.0 Allergy status to penicillin; Z88.8 Allergy status to other drugs, medicaments and biological substances; Z87.891 Personal history of nicotine dependence
CPT/HCPCS: 36415; 76705; 80048; 83880; 84484; 85027; 93005; G0378

== ENCOUNTER → 2019-07-09 | Outpatient (REF) | payer MEDICARE ==
[~2019-07-09] MED LIST changes: +ACET650T15 PO; +[UNRECOGNIZED DRUG - CODE] OU
[2019-07-09 12:12] LABS: BASO # 0.1 10^3/uL (0.0-0.2); BASO % 0.9 % (0.0-1.0); EOS # 0.3 10^3/uL (0.0-0.5); EOS % 5.9 % (0.0-3.0); HEMATOCRIT 43.8 % (42.0-52.0); HEMOGLOBIN 14.3 g/dl (13.5-17.5); LYMPH # 1.6 10^3/uL (1.5-5.0); LYMPH % 29.7 % (24.0-44.0); MEAN CORPUSCULAR HEMOGLOBIN 29.5 pg (27.0-33.0); MEAN CORPUSCULAR HGB CONC 32.6 g/dl (32.0-36.5); MEAN CORPUSCULAR VOLUME 90.5 fl (80.0-96.0); MONO # 0.5 10^3/uL (0.0-0.8); MONO % 9.6 % (0.0-5.0); NEUTROPHILS # 2.9 10^3/uL (1.5-8.5); NEUTROPHILS % 53.7 % (36.0-66.0); RED BLOOD COUNT 4.84 10^6/uL (4.30-6.10); WHITE BLOOD COUNT 5.4 10^3/uL (4.0-10.0)
[2019-07-09 12:40] LABS: ALBUMIN 3.7 GM/DL (3.2-5.2); ALT/SGPT 21 U/L (12-78); BILIRUBIN,TOTAL 0.4 MG/DL (0.2-1.0); BLOOD UREA NITROGEN 17 MG/DL (7-18); CARBON DIOXIDE LEVEL 30 MEQ/L (21-32); CHLORIDE LEVEL 107 MEQ/L (98-107); CREATININE FOR GFR 1.01 MG/DL (0.70-1.30); GLOMERULAR FILTRATION RATE > 60.0 (>42); GLUCOSE, FASTING 97 MG/DL (70-100); MAGNESIUM LEVEL 2.3 MG/DL (1.8-2.4); POTASSIUM SERUM 4.4 MEQ/L (3.5-5.1); SODIUM LEVEL 141 MEQ/L (136-145); TOTAL PROTEIN 6.5 GM/DL (6.4-8.2)
== END ==
LOC: M SFHCCLAY 07:51
PROVIDERS: ATTEND Internal Medicine
DX: D69.6 Thrombocytopenia, unspecified (principal); I10 Essential (primary) hypertension; E78.00 Pure hypercholesterolemia, unspecified; Z86.010 Personal history of colon polyps; E03.9 Hypothyroidism, unspecified

== ENCOUNTER → 2019-08-26 | Outpatient (CLI) | payer MEDICARE ==
[~2019-08-26] MED LIST changes: +CVS1CAP2 PO; +OMEP40CA97 PO
== END ==
LOC: M LABSMTC 10:24
PROVIDERS: ATTEND Anesthesiology
DX: Z01.818 Encounter for other preprocedural examination (principal); Z11.59 Encounter for screening for other viral diseases

== ENCOUNTER 2019-08-27 07:21 | Day surgery (SDC) | payer MEDICARE ==
[~2019-08-27] VITALS: Ht 180.3 cm; Wt 85.3 kg
[~2019-08-27 07:21] MED LIST changes: +LIDOCAINE 2% 100MG/5ML SDV (FOR ANES.) As Ordered ONE; +NS 1,000 ML IV ONE; +propofoL 200 MG/20 ML VIAL As Ordered ONE
--- NOTE | 2019-08-27 08:32 | ROOR ---
Patient Name: Thompson Romero Procedure Date: 08/27/2019 8:11 AM Date of : 1940 Age: 79 Room: [facility] Gender: Male Note Status: Finalized Procedure: Upper Endoscopy + Biopsies Indications: Heartburn, Unexplained chest pain, Chest pain (non cardiac) Providers: Jose Juan Quiroz MD Referring MD: Georges Silveira MD Requesting Provider: Medicines: Monitored Anesthesia Care Complications: No immediate complications. Procedure: Pre-Anesthesia Assessment: - The heart rate, respiratory rate, oxygen saturations, blood pressure, adequacy of pulmonary ventilation, and response to care were monitored throughout the procedure. The Endoscope was introduced through the mouth, and advanced to the second part of duodenum. The upper GI endoscopy was accomplished without difficulty. The patient tolerated the procedure well. Findings: The Z-line was variable and was found 40 cm from the incisors. Multiple biopsies were obtained with cold forceps for evaluation to rule out Brewer's Esophagus randomly at the gastroesophageal junction. A small hiatal hernia was present. Localized mild inflammation characterized by congestion (edema), erythema and friability was found on the greater curvature of the stomach. Biopsies were taken with a cold forceps for Helicobacter pylori testing. The exam of the duodenum was otherwise normal. Impression: - Z-line variable, 40 cm from the incisors. - Small hiatal hernia. - Mucosal changes suspicious for gastritis. Biopsied. - Multiple biopsies were obtained at the gastroesophageal junction. - The examination was otherwise normal. Recommendation: - Patient has a contact number available for emergencies. The signs and symptoms of potential delayed complications were discussed with the patient. Return to normal activities tomorrow. Written discharge instructions were provided to the patient. - High fiber diet. - Discharge patient to home. - Follow an antireflux regimen. - Continue present medications. - Await pathology results. - Telephone GI clinic for pathology results in 1 week. - Return to referring physician. - The findings and recommendations were discussed with the patient's family. Jose Juan Quiroz MD Jose Juan Quiroz MD 08/27/2019 8:32:22 AM Electronically signed by Jose Juan Quiroz MD Number of Addenda: 0 Note Initiated On: 08/27/2019 8:11 AM Estimated Blood Loss: Estimated blood loss: none.
[2019-08-27] MEDS ORDERED: fentaNYL 100 MCG/2 ML INJECTION (J3010) As Ordered ONE (08:35)
[2019-08-27 08:55] VITALS: BP 144/75
== END 2019-08-27 09:01 | disposition home or self-care (01) ==
LOC: M OPP 07:21
PROVIDERS: ATTEND Internal Medicine Gastroenterology
DX: K22.8 Other specified diseases of esophagus (principal); K44.9 Diaphragmatic hernia without obstruction or gangrene; K31.89 Other diseases of stomach and duodenum; I48.91 Unspecified atrial fibrillation; E03.9 Hypothyroidism, unspecified; I25.2 Old myocardial infarction; Z79.82 Long term (current) use of aspirin; Z79.899 Other long term (current) drug therapy; Z88.1 Allergy status to other antibiotic agents; Z88.8 Allergy status to other drugs, medicaments and biological substances; Z95.0 Presence of cardiac pacemaker
CPT/HCPCS: 43239; 88305; J3010

== ENCOUNTER → 2019-11-17 | Outpatient (REF) | payer MEDICARE ==
[~2019-11-17] MED LIST changes: -LIDOCAINE 2% 100MG/5ML SDV (FOR ANES.) As Ordered ONE; -NS 1,000 ML IV ONE; -VITA1TAB23 PO; +VITA250T20 PO; -propofoL 200 MG/20 ML VIAL As Ordered ONE
== END ==
LOC: M SFHCCLAY 07:05
PROVIDERS: ATTEND Nurse Practitioner Women's Health
DX: Z85.46 Personal history of malignant neoplasm of prostate (principal)

== ENCOUNTER → 2020-01-09 | Outpatient (REF) | payer MEDICARE ==
[2020-01-09 14:26] LABS: BASO # 0.1 10^3/uL (0.0-0.2); BASO % 1.2 % (0.0-1.0); EOS # 0.2 10^3/uL (0.0-0.5); EOS % 4.2 % (0.0-3.0); HEMATOCRIT 36.8 % (42.0-52.0); HEMOGLOBIN 11.8 g/dl (13.5-17.5); LYMPH # 1.3 10^3/uL (1.5-5.0); MEAN CORPUSCULAR HEMOGLOBIN 29.3 pg (27.0-33.0); MEAN CORPUSCULAR HGB CONC 32.1 g/dl (32.0-36.5); MEAN CORPUSCULAR VOLUME 91.3 fl (80.0-96.0); MONO # 0.6 10^3/uL (0.0-0.8); MONO % 11.1 % (0.0-5.0); NEUTROPHILS # 2.9 10^3/uL (1.5-8.5); NEUTROPHILS % 58.3 % (36.0-66.0); RED BLOOD COUNT 4.03 10^6/uL (4.30-6.10)
[2020-01-09 15:00] LABS: ALBUMIN 3.8 GM/DL (3.2-5.2); ALT/SGPT 24 U/L (12-78); BILIRUBIN,TOTAL 0.4 MG/DL (0.2-1.0); BLOOD UREA NITROGEN 23 MG/DL (7-18); CALCIUM LEVEL 8.9 MG/DL (8.8-10.2); CARBON DIOXIDE LEVEL 29 MEQ/L (21-32); CHLORIDE LEVEL 106 MEQ/L (98-107); CHOLESTEROL LEVEL 155 MG/DL (<200); CHOLESTEROL RISK RATIO 3.163 (<5); GLOMERULAR FILTRATION RATE > 60.0 (>42); GLUCOSE, FASTING 94 MG/DL (70-100); HDL CHOLESTEROL 49 MG/DL (>40); LDL CHOLESTEROL 93 MG/DL (<100); MAGNESIUM LEVEL 2.2 MG/DL (1.8-2.4); NON-HDL-C 106 MG/DL; POTASSIUM SERUM 4.6 MEQ/L (3.5-5.1); SODIUM LEVEL 139 MEQ/L (136-145); TOTAL PROTEIN 6.5 GM/DL (6.4-8.2); TRIGLYCERIDES LEVEL 64 MG/DL (<150)
[2020-01-12 11:20] LABS: FERRITIN 107 NG/ML (26-388); IRON (FE) 47 UG/DL (65-175); PERCENT SATURATION 17.3 % (19.7-50.0); TOTAL IRON BINDING CAPACITY 272 UG/DL (250-450)
[2020-01-12 11:29] LABS: VITAMIN B12 LEVEL 282 PG/ML (247-911)
== END ==
LOC: M LABDRAWC 11:53
PROVIDERS: ATTEND Internal Medicine
DX: I10 Essential (primary) hypertension (principal); E78.00 Pure hypercholesterolemia, unspecified; D69.6 Thrombocytopenia, unspecified; D64.9 Anemia, unspecified

== ENCOUNTER → 2020-02-18 | Outpatient (REF) | payer MEDICARE ==
[2020-02-18 12:34] LABS: BASO # 0.1 10^3/uL (0.0-0.2); EOS # 0.2 10^3/uL (0.0-0.5); EOS % 2.9 % (0.0-3.0); HEMATOCRIT 45.1 % (42.0-52.0); HEMOGLOBIN 14.2 g/dl (13.5-17.5); LYMPH # 1.5 10^3/uL (1.5-5.0); LYMPH % 24.8 % (24.0-44.0); MEAN CORPUSCULAR HEMOGLOBIN 29.1 pg (27.0-33.0); MEAN CORPUSCULAR HGB CONC 31.5 g/dl (32.0-36.5); MEAN CORPUSCULAR VOLUME 92.4 fl (80.0-96.0); MONO # 0.6 10^3/uL (0.0-0.8); MONO % 10.2 % (0.0-5.0); NEUTROPHILS # 3.6 10^3/uL (1.5-8.5); NEUTROPHILS % 60.8 % (36.0-66.0); RED BLOOD COUNT 4.88 10^6/uL (4.30-6.10); WHITE BLOOD COUNT 5.9 10^3/uL (4.0-10.0)
== END ==
LOC: M LABDRAWC 11:34
PROVIDERS: ATTEND Internal Medicine
DX: D64.9 Anemia, unspecified (principal)

== ENCOUNTER → 2020-03-26 | Outpatient (CLI) | payer MEDICARE ==
--- NOTE | 2020-03-26 12:03 | REP ---
INDICATION: PAIN RIGHT SHOULDER COMPARISON: None. TECHNIQUE: Internal rotation, external rotation, and Y view. FINDINGS: Early moderate degenerative changes include cortical irregularity and subtle spurring at the acromioclavicular joint and primarily the acromion. The subacromial space is normal. There is subtle cortical irregularity to the calcified glenoid rim. No acute fracture or dislocation identified. No periarticular calcifications/loose bodies identified. Surrounding soft tissues are normal.. IMPRESSION: Mild/early moderate arthritic changes <Electronically signed by Jcarlos Murphy > 03/26/20 [id number]
== END ==
LOC: M WUC 11:39
PROVIDERS: ATTEND Physician Assistant
DX: M19.011 Primary osteoarthritis, right shoulder (principal)

== ENCOUNTER → 2020-05-17 | Outpatient (REF) | payer MEDICARE ==
[~2020-05-17] MED LIST changes: +LISI10TA22 PO; -LISI10TA4 PO
== END ==
LOC: M SFHCCLAY 13:48
PROVIDERS: ATTEND Nurse Practitioner Women's Health
DX: Z85.46 Personal history of malignant neoplasm of prostate (principal)

== ENCOUNTER → 2020-07-12 | Outpatient (REF) | payer MEDICARE ==
[2020-07-12 11:42] LABS: BASO # 0.1 10^3/uL (0.0-0.2); BASO % 1.1 % (0.0-1.0); EOS # 0.2 10^3/uL (0.0-0.5); EOS % 3.3 % (0.0-3.0); HEMATOCRIT 45.2 % (42.0-52.0); HEMOGLOBIN 14.2 g/dl (13.5-17.5); LYMPH # 1.4 10^3/uL (1.5-5.0); LYMPH % 25.9 % (24.0-44.0); MEAN CORPUSCULAR HGB CONC 31.4 g/dl (32.0-36.5); MEAN CORPUSCULAR VOLUME 92.4 fl (80.0-96.0); MONO # 0.5 10^3/uL (0.0-0.8); NEUTROPHILS # 3.3 10^3/uL (1.5-8.5); NEUTROPHILS % 60.5 % (36.0-66.0); RED BLOOD COUNT 4.89 10^6/uL (4.30-6.10); WHITE BLOOD COUNT 5.5 10^3/uL (4.0-10.0)
[2020-07-12 12:19] LABS: ALBUMIN 4.1 GM/DL (3.2-5.2); ALT/SGPT 20 U/L (12-78); BILIRUBIN,TOTAL 0.5 MG/DL (0.2-1.0); BLOOD UREA NITROGEN 18 MG/DL (7-18); CARBON DIOXIDE LEVEL 33 MEQ/L (21-32); CHLORIDE LEVEL 107 MEQ/L (98-107); CREATININE FOR GFR 0.92 MG/DL (0.70-1.30); GLOMERULAR FILTRATION RATE > 60.0 (>42); GLUCOSE, FASTING 96 MG/DL (70-100); MAGNESIUM LEVEL 2.1 MG/DL (1.8-2.4); POTASSIUM SERUM 4.4 MEQ/L (3.5-5.1); SODIUM LEVEL 142 MEQ/L (136-145); TOTAL PROTEIN 6.7 GM/DL (6.4-8.2)
== END ==
LOC: M SFHCCLAY 08:44
PROVIDERS: ATTEND Internal Medicine
DX: D69.6 Thrombocytopenia, unspecified (principal); Z85.46 Personal history of malignant neoplasm of prostate; I10 Essential (primary) hypertension; E03.9 Hypothyroidism, unspecified; Z11.59 Encounter for screening for other viral diseases
CPT/HCPCS: 80053; 83735; 84443; 85025; G0472

== ENCOUNTER → 2020-11-15 | Outpatient (REF) | payer MEDICARE ==
[~2020-11-15] MED LIST changes: +OMEP40CA4 PO; -OMEP40CA97 PO
== END ==
LOC: M SMT 11:58
PROVIDERS: ATTEND Nurse Practitioner Women's Health
DX: Z85.46 Personal history of malignant neoplasm of prostate (principal)

== ENCOUNTER → 2021-01-11 | Outpatient (REF) | payer MEDICARE ==
[2021-01-11 12:21] LABS: BASO # 0.1 10^3/uL (0.0-0.2); BASO % 1.1 % (0.0-1.0); EOS # 0.3 10^3/uL (0.0-0.5); EOS % 4.9 % (0.0-3.0); HEMATOCRIT 43.6 % (42.0-52.0); HEMOGLOBIN 13.9 g/dl (13.5-17.5); LYMPH # 1.7 10^3/uL (1.5-5.0); MEAN CORPUSCULAR HEMOGLOBIN 29.4 pg (27.0-33.0); MEAN CORPUSCULAR HGB CONC 31.9 g/dl (32.0-36.5); MEAN CORPUSCULAR VOLUME 92.2 fl (80.0-96.0); MONO # 0.6 10^3/uL (0.0-0.8); MONO % 10.4 % (2.0-8.0); NEUTROPHILS # 3.4 10^3/uL (1.5-8.5); NEUTROPHILS % 55.4 % (36.0-66.0); RED BLOOD COUNT 4.73 10^6/uL (4.30-6.10); WHITE BLOOD COUNT 6.2 10^3/uL (4.0-10.0)
[2021-01-11 12:56] LABS: PLATELET COUNT, AUTOMATED 58 10^3/uL (150-450)
[2021-01-11 13:23] LABS: ALBUMIN 3.8 GM/DL (3.2-5.2); ALT/SGPT 23 U/L (12-78); BILIRUBIN,TOTAL 0.6 MG/DL (0.2-1.0); BLOOD UREA NITROGEN 15 MG/DL (7-18); CALCIUM LEVEL 9.2 MG/DL (8.8-10.2); CARBON DIOXIDE LEVEL 31 MEQ/L (21-32); CHLORIDE LEVEL 107 MEQ/L (98-107); CHOLESTEROL LEVEL 158 MG/DL (<200); CHOLESTEROL RISK RATIO 2.872 (<5); CREATININE FOR GFR 0.96 MG/DL (0.70-1.30); GLOMERULAR FILTRATION RATE > 60.0 (>42); GLUCOSE, FASTING 89 MG/DL (70-100); HDL CHOLESTEROL 55 MG/DL (>40); LDL CHOLESTEROL 88 MG/DL (<100); NON-HDL-C 103 MG/DL; POTASSIUM SERUM 4.6 MEQ/L (3.5-5.1); SODIUM LEVEL 140 MEQ/L (136-145); TOTAL PROTEIN 6.6 GM/DL (6.4-8.2); TRIGLYCERIDES LEVEL 75 MG/DL (<150)
[2021-01-12 09:36] LABS: VITAMIN B12 LEVEL 428 PG/ML (247-911)
[2021-01-12 09:37] LABS: FOLATE 10.8 NG/ML (>5.4)
== END ==
LOC: M SFHCCLAY 07:29
PROVIDERS: ATTEND Internal Medicine
DX: D69.6 Thrombocytopenia, unspecified (principal); I10 Essential (primary) hypertension; E78.00 Pure hypercholesterolemia, unspecified

== ENCOUNTER → 2021-05-23 | Outpatient (REF) | payer MEDICARE ==
[~2021-05-23] MED LIST changes: -MOME50SP; +NASO50SP3
== END ==
LOC: M SFHCCLAY 11:16
PROVIDERS: ATTEND Nurse Practitioner Women's Health
DX: Z85.46 Personal history of malignant neoplasm of prostate (principal)

== ENCOUNTER → 2021-07-18 | Outpatient (REF) | payer MEDICARE ==
[2021-07-18 11:30] LABS: BASO # 0.1 10^3/uL (0.0-0.2); BASO % 1.1 % (0.0-1.0); EOS # 0.3 10^3/uL (0.0-0.5); EOS % 4.6 % (0.0-3.0); LYMPH # 1.4 10^3/uL (1.5-5.0); LYMPH % 25.5 % (24.0-44.0); MEAN CORPUSCULAR HEMOGLOBIN 28.7 pg (27.0-33.0); MEAN CORPUSCULAR HGB CONC 31.8 g/dl (32.0-36.5); MEAN CORPUSCULAR VOLUME 90.3 fl (80.0-96.0); MONO # 0.5 10^3/uL (0.0-0.8); MONO % 8.7 % (2.0-8.0); NEUTROPHILS # 3.4 10^3/uL (1.5-8.5); NEUTROPHILS % 59.7 % (36.0-66.0); RED BLOOD COUNT 4.87 10^6/uL (4.30-6.10); WHITE BLOOD COUNT 5.6 10^3/uL (4.0-10.0)
[2021-07-18 13:10] LABS: ALT/SGPT 22 U/L (12-78); BILIRUBIN,TOTAL 0.6 MG/DL (0.2-1.0); BLOOD UREA NITROGEN 23 MG/DL (7-18); CALCIUM LEVEL 9.2 MG/DL (8.8-10.2); CARBON DIOXIDE LEVEL 31 MEQ/L (21-32); CHLORIDE LEVEL 108 MEQ/L (98-107); CHOLESTEROL LEVEL 147 MG/DL (<200); CREATININE FOR GFR 1.04 MG/DL (0.70-1.30); GLOMERULAR FILTRATION RATE > 60.0 (>35); GLUCOSE, FASTING 92 MG/DL (70-100); HDL CHOLESTEROL 52 MG/DL (>40); POTASSIUM SERUM 4.4 MEQ/L (3.5-5.1); SODIUM LEVEL 142 MEQ/L (136-145); TRIGLYCERIDES LEVEL 68 MG/DL (<150)
[2021-07-18 13:11] LABS: CHOLESTEROL RISK RATIO 2.826 (<5); LDL CHOLESTEROL 81 MG/DL (<100); NON-HDL-C 95 MG/DL; TOTAL PROTEIN 6.6 GM/DL (6.4-8.2)
== END ==
LOC: M SFHCCLAY 07:49
PROVIDERS: ATTEND Internal Medicine
DX: I10 Essential (primary) hypertension (principal); E78.00 Pure hypercholesterolemia, unspecified; Z85.46 Personal history of malignant neoplasm of prostate; E03.9 Hypothyroidism, unspecified

== ENCOUNTER → 2022-01-20 | Outpatient (REF) | payer MEDICARE ==
[2022-01-20 11:21] LABS: HEMATOCRIT 46.3 % (42.0-52.0); HEMOGLOBIN 14.7 g/dl (13.5-17.5); MEAN CORPUSCULAR HEMOGLOBIN 29.1 pg (27.0-33.0); MEAN CORPUSCULAR HGB CONC 31.7 g/dl (32.0-36.5); MEAN CORPUSCULAR VOLUME 91.7 fl (80.0-96.0); RED BLOOD COUNT 5.05 10^6/uL (4.30-6.10)
[2022-01-20 11:51] LABS: ALBUMIN 3.9 GM/DL (3.2-5.2); ALT/SGPT 19 U/L (12-78); BILIRUBIN,TOTAL 0.7 MG/DL (0.2-1.0); BLOOD UREA NITROGEN 14 MG/DL (7-18); CALCIUM LEVEL 8.9 MG/DL (8.8-10.2); CARBON DIOXIDE LEVEL 30 MEQ/L (21-32); CHLORIDE LEVEL 107 MEQ/L (98-107); CHOLESTEROL LEVEL 144 MG/DL (<200); CHOLESTEROL RISK RATIO 2.666 (<5); CREATININE FOR GFR 0.94 MG/DL (0.70-1.30); GLOMERULAR FILTRATION RATE > 60.0 (>35); GLUCOSE, FASTING 90 MG/DL (70-100); HDL CHOLESTEROL 54 MG/DL (>40); HEMOGLOBIN A1c 5.7 %; LDL CHOLESTEROL 75 MG/DL (<100); NON-HDL-C 90 MG/DL; POTASSIUM SERUM 4.5 MEQ/L (3.5-5.1); SODIUM LEVEL 140 MEQ/L (136-145); THYROID STIMULATING HORMONE 0.322 uIU/ML (0.358-3.740); TOTAL PROTEIN 6.6 GM/DL (6.4-8.2); TRIGLYCERIDES LEVEL 73 MG/DL (<150)
[2022-01-20 12:00] LABS: MALB URINE SIEMENS 15.4 MG/L; MAU/CREAT RATIO 11.5 MCG/MG (0.0-30.0)
[2022-01-20 12:28] LABS: TOTAL 25(OH) VITAMIN D 27.6 NG/ML (30.0-100.0)
[2022-01-20 12:30] LABS: VITAMIN B12 LEVEL 423 PG/ML (247-911)
== END ==
LOC: M SFHCPLAZ 07:53
PROVIDERS: ATTEND Internal Medicine Hematology
DX: I10 Essential (primary) hypertension (principal)

== ENCOUNTER → 2022-04-20 | Outpatient (CLI) | payer MEDICARE | LOC: M PLAIMG 12:12 | PROVIDERS: ATTEND Physician Assistant | DX: R05.1 Acute cough (principal); J02.9 Acute pharyngitis, unspecified ==

== ENCOUNTER → 2022-05-29 | Outpatient (REF) | payer MEDICARE | LOC: M SFHCPLAZ 09:54 | PROVIDERS: ATTEND Internal Medicine Hematology | DX: Z85.46 Personal history of malignant neoplasm of prostate (principal) ==

== ENCOUNTER → 2022-07-20 | Outpatient (REF) | payer MEDICARE ==
[2022-07-20 11:45] LABS: ALBUMIN 3.8 G/DL (3.2-5.2); ALKALINE PHOSPHATASE 61 U/L (46-116); ALT/SGPT 17 U/L (7.0-40); AST/SGOT 17 U/L (<34); BILIRUBIN,TOTAL 0.6 MG/DL (0.3-1.2); BLOOD UREA NITROGEN 13 MG/DL (9-23); C REACTIVE PROTEIN QUANTITATIV < 0.40 MG/DL (<1.0); CARBON DIOXIDE LEVEL 31 MMOL/L (20-31); CHLORIDE LEVEL 105 MMOL/L (98-107); CHOLESTEROL LEVEL 162 MG/DL (<200); CHOLESTEROL RISK RATIO 3.07 (<5); CREATININE FOR GFR 1.05 MG/DL (0.70-1.30); GLOMERULAR FILTRATION RATE > 60.0 (>35); GLUCOSE, FASTING 98 MG/DL (74-106); HDL CHOLESTEROL 52.7 MG/DL (>40); LDL CHOLESTEROL 93.9 MG/DL (<100); NON-HDL-C 109.3 MG/DL; POTASSIUM SERUM 4.2 MMOL/L (3.5-5.1); SODIUM LEVEL 140 MMOL/L (136-145); THYROID STIMULATING HORMONE 5.065 uIU/ML (0.55-4.78); TOTAL 25(OH) VITAMIN D 24.9 NG/ML (20.0-100.0); TRIGLYCERIDES LEVEL 77 MG/DL (<150); VITAMIN B12 LEVEL 353 PG/ML (211-911)
[2022-07-20 11:46] LABS: FREE T4 1.29 NG/DL (0.89-1.76)
[2022-07-20 11:50] LABS: HEMATOCRIT 47.1 % (42.0-52.0); HEMOGLOBIN 14.7 g/dl (13.5-17.5); MEAN CORPUSCULAR HEMOGLOBIN 29.1 pg (27.0-33.0); MEAN CORPUSCULAR HGB CONC 31.2 g/dl (32.0-36.5); MEAN CORPUSCULAR VOLUME 93.1 fl (80.0-96.0); RED BLOOD COUNT 5.06 10^6/uL (4.30-6.10); WHITE BLOOD COUNT 6.4 10^3/uL (4.0-10.0)
[2022-07-20 12:01] LABS: HEMOGLOBIN A1c 5.5 % (4.0-6.0)
[2022-07-20 12:35] LABS: MAU/CREAT RATIO 22.5 MCG/MG (0.0-30.0)
== END ==
LOC: M SFHCPLAZ 07:57
PROVIDERS: ATTEND Internal Medicine Hematology
DX: E78.00 Pure hypercholesterolemia, unspecified (principal); Z79.899 Other long term (current) drug therapy

== ENCOUNTER → 2022-07-31 | Outpatient (REF) | payer MEDICARE ==
[2022-07-31 20:32] LABS: BLOOD UREA NITROGEN 11 MG/DL (9-23); CALCIUM LEVEL 9.2 MG/DL (8.3-10.6); CARBON DIOXIDE LEVEL 29 MMOL/L (20-31); CHLORIDE LEVEL 106 MMOL/L (98-107); GLOMERULAR FILTRATION RATE > 60.0 (>35); GLUCOSE, FASTING 84 MG/DL (74-106); POTASSIUM SERUM 4.3 MMOL/L (3.5-5.1); SODIUM LEVEL 141 MMOL/L (136-145)
== END ==
LOC: M LABDRAWC 17:11
PROVIDERS: ATTEND Physician Assistant
DX: I25.5 Ischemic cardiomyopathy (principal)

== ENCOUNTER → 2022-09-05 | Outpatient (REF) | payer MEDICARE | LOC: M SFHCPLAZ 07:33 | PROVIDERS: ATTEND Internal Medicine Hematology | DX: E03.9 Hypothyroidism, unspecified (principal) ==

== ENCOUNTER → 2023-01-16 | Outpatient (REF) | payer MEDICARE ==
[2023-01-16 13:38] LABS: HEMATOCRIT 44.2 % (42.0-52.0); MEAN CORPUSCULAR HEMOGLOBIN 28.7 pg (27.0-33.0); MEAN CORPUSCULAR HGB CONC 31.7 g/dl (32.0-36.5); MEAN CORPUSCULAR VOLUME 90.6 fl (80.0-96.0); RED BLOOD COUNT 4.88 10^6/uL (4.30-6.10); WHITE BLOOD COUNT 5.5 10^3/uL (4.0-10.0)
[2023-01-16 14:01] LABS: HEMOGLOBIN A1c 5.2 % (4.0-6.0)
[2023-01-16 14:15] LABS: FREE T4 1.31 NG/DL (0.89-1.76); THYROID STIMULATING HORMONE 2.501 uIU/ML (0.55-4.78); TOTAL 25(OH) VITAMIN D 27.1 NG/ML (20.0-100.0)
[2023-01-16 14:16] LABS: C REACTIVE PROTEIN QUANTITATIV < 0.40 MG/DL (<1.0); VITAMIN B12 LEVEL 492 PG/ML (211-911)
[2023-01-16 14:19] LABS: ALKALINE PHOSPHATASE 59 U/L (46-116); ALT/SGPT 28 U/L (7.0-40); AST/SGOT 20 U/L (<34); BILIRUBIN,TOTAL 0.6 MG/DL (0.3-1.2); BLOOD UREA NITROGEN 19 MG/DL (9-23); CALCIUM LEVEL 8.9 MG/DL (8.3-10.6); CARBON DIOXIDE LEVEL 28 MMOL/L (20-31); CHLORIDE LEVEL 105 MMOL/L (98-107); CHOLESTEROL LEVEL 130 MG/DL (<200); CHOLESTEROL RISK RATIO 2.19 (<5); CREATININE FOR GFR 0.97 MG/DL (0.70-1.30); GLOMERULAR FILTRATION RATE > 60.0 (>35); GLUCOSE, FASTING 94 MG/DL (74-106); HDL CHOLESTEROL 59.1 MG/DL (>40); LDL CHOLESTEROL 55.9 MG/DL (<100); NON-HDL-C 70.9 MG/DL; POTASSIUM SERUM 4.3 MMOL/L (3.5-5.1); SODIUM LEVEL 143 MMOL/L (136-145); TOTAL PROTEIN 6.4 G/DL (5.7-8.2); TRIGLYCERIDES LEVEL 75 MG/DL (<150)
[2023-01-16 14:22] LABS: CREATININE, URINE 146.8 MG/DL; MAU/CREAT RATIO 5.4 MCG/MG (0.0-30.0)
== END ==
LOC: M SFHCPLAZ 07:29
PROVIDERS: ATTEND Internal Medicine Hematology
DX: I25.10 Atherosclerotic heart disease of native coronary artery without angina pectoris (principal); Z79.82 Long term (current) use of aspirin; Z79.899 Other long term (current) drug therapy

== ENCOUNTER → 2023-05-31 | Outpatient (REF) | payer MEDICARE | LOC: M SFHCCLAY 13:19 | PROVIDERS: ATTEND Physician Assistant | DX: Z85.46 Personal history of malignant neoplasm of prostate (principal) ==

== ENCOUNTER → 2023-07-18 | Outpatient (REF) | payer MEDICARE ==
[~2023-07-18] MED LIST changes: -ASPI-161 PO; +ASPI-615 PO
[2023-07-18 12:12] LABS: BASO # 0.1 10^3/uL (0.0-0.2); BASO % 1.5 % (0.0-1.0); EOS # 0.3 10^3/uL (0.0-0.5); EOS % 4.8 % (0.0-3.0); HEMATOCRIT 44.9 % (42.0-52.0); HEMOGLOBIN 14.3 g/dl (13.5-17.5); LYMPH # 1.2 10^3/uL (1.5-5.0); LYMPH % 20.5 % (24.0-44.0); MEAN CORPUSCULAR HEMOGLOBIN 29.7 pg (27.0-33.0); MEAN CORPUSCULAR HGB CONC 31.8 g/dl (32.0-36.5); MEAN CORPUSCULAR VOLUME 93.2 fl (80.0-96.0); MONO # 0.6 10^3/uL (0.0-0.8); MONO % 10.1 % (2.0-8.0); NEUTROPHILS # 3.8 10^3/uL (1.5-8.5); NEUTROPHILS % 62.8 % (36.0-66.0); RED BLOOD COUNT 4.82 10^6/uL (4.30-6.10)
[2023-07-18 12:36] LABS: HEMOGLOBIN A1c 5.7 % (4.0-6.0)
[2023-07-18 12:42] LABS: FREE T4 1.67 NG/DL (0.89-1.76); THYROID STIMULATING HORMONE 4.583 uIU/ML (0.55-4.78)
[2023-07-18 12:43] LABS: CREATININE, URINE 179.6 MG/DL
[2023-07-18 12:44] LABS: C REACTIVE PROTEIN QUANTITATIV < 0.40 MG/DL (<1.0); MAU/CREAT RATIO 7.2 MCG/MG (0.0-30.0); TOTAL 25(OH) VITAMIN D 19.1 NG/ML (20.0-100.0); VITAMIN B12 LEVEL 371 PG/ML (211-911)
[2023-07-18 12:46] LABS: ALBUMIN 4.1 G/DL (3.2-5.2); ALKALINE PHOSPHATASE 71 U/L (46-116); ALT/SGPT 20 U/L (7.0-40); AST/SGOT 17 U/L (<34); BILIRUBIN,TOTAL 0.5 MG/DL (0.3-1.2); BLOOD UREA NITROGEN 19 MG/DL (9-23); CALCIUM LEVEL 8.7 MG/DL (8.3-10.6); CARBON DIOXIDE LEVEL 29 MMOL/L (20-31); CHLORIDE LEVEL 105 MMOL/L (98-107); CHOLESTEROL LEVEL 124 MG/DL (<200); CHOLESTEROL RISK RATIO 2.46 (<5); CREATININE FOR GFR 1.13 MG/DL (0.70-1.30); GLOMERULAR FILTRATION RATE > 60.0 (>35); GLUCOSE, FASTING 87 MG/DL (74-106); HDL CHOLESTEROL 50.4 MG/DL (>40); LDL CHOLESTEROL 61.4 MG/DL (<100); NON-HDL-C 73.6 MG/DL; POTASSIUM SERUM 4.4 MMOL/L (3.5-5.1); SODIUM LEVEL 142 MMOL/L (136-145); TOTAL PROTEIN 6.5 G/DL (5.7-8.2); TRIGLYCERIDES LEVEL 61 MG/DL (<150)
== END ==
LOC: M SFHCPLAZ 07:35
PROVIDERS: ATTEND Internal Medicine Hematology
DX: I25.10 Atherosclerotic heart disease of native coronary artery without angina pectoris (principal); E07.9 Disorder of thyroid, unspecified

== ENCOUNTER → 2023-09-10 | Outpatient (REF) | payer MEDICARE ==
[2023-09-10 18:02] LABS: CALCIUM LEVEL 9.1 MG/DL (8.3-10.6); CREATININE FOR GFR 1.3 MG/DL (0.70-1.30); GLOMERULAR FILTRATION RATE 56.3 (>35); POTASSIUM SERUM 4.1 MMOL/L (3.5-5.1)
== END ==
LOC: M LABDRAWC 16:46
PROVIDERS: ATTEND Physician Assistant
DX: I25.5 Ischemic cardiomyopathy (principal)

== ENCOUNTER → 2023-09-19 | Outpatient (REF) | payer MEDICARE | LOC: M SFHCPLAZ 14:49 | PROVIDERS: ATTEND Physician Assistant Medical | DX: J06.9 Acute upper respiratory infection, unspecified (principal) ==

== ENCOUNTER → 2023-10-22 | Outpatient (CLI) | payer MEDICARE | LOC: M PLAIMG 08:24 | PROVIDERS: ATTEND Physician Assistant | DX: I25.5 Ischemic cardiomyopathy (principal) ==

== ENCOUNTER → 2024-01-29 | Outpatient (REF) | payer MEDICARE ==
[2024-01-29 12:09] LABS: C REACTIVE PROTEIN QUANTITATIV < 0.40 MG/DL (<1.0)
[2024-01-29 12:11] LABS: ALBUMIN 4.1 G/DL (3.2-5.2); ALKALINE PHOSPHATASE 75 U/L (46-116); ALT/SGPT 23 U/L (7.0-40); AST/SGOT 16 U/L (<34); BILIRUBIN,TOTAL 0.6 MG/DL (0.3-1.2); BLOOD UREA NITROGEN 19 MG/DL (9-23); CALCIUM LEVEL 9.1 MG/DL (8.3-10.6); CARBON DIOXIDE LEVEL 27 MMOL/L (20-31); CHLORIDE LEVEL 107 MMOL/L (98-107); CHOLESTEROL LEVEL 138 MG/DL (<200); CHOLESTEROL RISK RATIO 2.45 (<5); CREATININE FOR GFR 1.19 MG/DL (0.70-1.30); GLOMERULAR FILTRATION RATE > 60.0 (>35); GLUCOSE, FASTING 83 MG/DL (74-106); HDL CHOLESTEROL 56.2 MG/DL (>40); LDL CHOLESTEROL 67.2 MG/DL (<100); NON-HDL-C 81.8 MG/DL; POTASSIUM SERUM 4.2 MMOL/L (3.5-5.1); SODIUM LEVEL 139 MMOL/L (136-145); TOTAL PROTEIN 6.8 G/DL (5.7-8.2); TRIGLYCERIDES LEVEL 73 MG/DL (<150)
[2024-01-29 12:15] LABS: THYROID STIMULATING HORMONE 4.238 uIU/ML (0.55-4.78); TOTAL 25(OH) VITAMIN D 36.8 NG/ML (20.0-100.0); VITAMIN B12 LEVEL 293 PG/ML (211-911)
[2024-01-29 12:25] LABS: BASO # 0.1 10^3/uL (0.0-0.2); EOS # 0.2 10^3/uL (0.0-0.5); EOS % 3.7 % (0.0-3.0); HEMATOCRIT 45.5 % (42.0-52.0); HEMOGLOBIN 14.5 g/dl (13.5-17.5); LYMPH # 1.5 10^3/uL (1.5-5.0); MEAN CORPUSCULAR HEMOGLOBIN 29.4 pg (27.0-33.0); MEAN CORPUSCULAR HGB CONC 31.9 g/dl (32.0-36.5); MEAN CORPUSCULAR VOLUME 92.3 fl (80.0-96.0); MONO # 0.6 10^3/uL (0.0-0.8); MONO % 10.3 % (2.0-8.0); NEUTROPHILS # 3.6 10^3/uL (1.5-8.5); NEUTROPHILS % 59.7 % (36.0-66.0); RED BLOOD COUNT 4.93 10^6/uL (4.30-6.10)
[2024-01-29 12:41] LABS: CREATININE, URINE 150.1 MG/DL; MAU/CREAT RATIO 18.6 MCG/MG (0.0-30.0)
[2024-01-29 13:18] LABS: HEMOGLOBIN A1c 5.5 % (4.0-6.0)
== END ==
LOC: M SFHCCLAY 07:02
PROVIDERS: ATTEND Internal Medicine Hematology
DX: I10 Essential (primary) hypertension (principal)

== ENCOUNTER → 2024-02-21 | Outpatient (CLI) | payer MEDICARE | LOC: M CLY 15:05 | PROVIDERS: ATTEND Physician Assistant | DX: R50.9 Fever, unspecified (principal); R07.81 Pleurodynia ==

== ENCOUNTER → 2024-05-12 | Outpatient (CLI) | payer MEDICARE ==
[~2024-05-12] MED LIST changes: -ALIG4CAP PO; +ALIG4CAP3 PO
[2024-05-12 13:46] LABS: APPEARANCE, URINE CLEAR (CLEAR); BACTERIA, URINE AUTO NEGATIVE (NEGATIVE); BILIRUBIN, URINE AUTO NEGATIVE (NEGATIVE); BLOOD, URINE BLOOD NEGATIVE (NEGATIVE); COLOR, URINE YELLOW (YELLOW); GLUCOSE, URINE (UA) AUTO 3+ mg/dL (NEGATIVE); KETONE, URINE AUTO TRACE mg/dL (NEGATIVE); LEUKOCYTE ESTERASE, URINE AUTO NEGATIVE (NEGATIVE); MUCUS, URINE SMALL (NEGATIVE); NITRITE, URINE AUTO NEGATIVE (NEGATIVE); PROTEIN, URINE AUTO NEGATIVE (NEGATIVE); RBC, URINE AUTO 0 /HPF (0-3); SPECIFIC GRAVITY URINE AUTO 1.011 (1.002-1.035); SQUAMOUS EPITHELIAL CELL UR AU 0 /HPF (0-6); UROBILINOGEN, URINE AUTO 0.2 mg/dL (0.0-2.0); WBC, URINE AUTO 0 /HPF (0-3)
== END ==
LOC: M PLAIMG 12:17
PROVIDERS: ATTEND Physician Assistant Medical
DX: M47.814 Spondylosis without myelopathy or radiculopathy, thoracic region (principal); M47.816 Spondylosis without myelopathy or radiculopathy, lumbar region; R10.9 Unspecified abdominal pain

== ENCOUNTER → 2024-05-12 | Outpatient (CLI) | payer MEDICARE, OTHER | LOC: M RAD 12:58 | PROVIDERS: ATTEND Physician Assistant Medical | DX: K57.30 Diverticulosis of large intestine without perforation or abscess without bleeding (principal); K80.20 Calculus of gallbladder without cholecystitis without obstruction; R10.9 Unspecified abdominal pain; M54.9 Dorsalgia, unspecified ==

== ENCOUNTER → 2024-05-28 | Outpatient (REF) | payer MEDICARE | LOC: M SFHCCLAY 12:49 | PROVIDERS: ATTEND Physician Assistant | DX: Z85.46 Personal history of malignant neoplasm of prostate (principal) ==

== ENCOUNTER → 2024-08-08 | Outpatient (REF) | payer MEDICARE ==
[2024-08-08 12:39] LABS: BASO # 0.1 10^3/uL (0.0-0.2); EOS # 0.2 10^3/uL (0.0-0.5); EOS % 2.9 % (0.0-3.0); HEMATOCRIT 43.8 % (42.0-52.0); HEMOGLOBIN 13.8 g/dl (13.5-17.5); LYMPH # 1.3 10^3/uL (1.5-5.0); LYMPH % 24.4 % (24.0-44.0); MEAN CORPUSCULAR HEMOGLOBIN 30.3 pg (27.0-33.0); MEAN CORPUSCULAR HGB CONC 31.5 g/dl (32.0-36.5); MEAN CORPUSCULAR VOLUME 96.1 fl (80.0-96.0); MONO # 0.5 10^3/uL (0.0-0.8); MONO % 9.6 % (2.0-8.0); NEUTROPHILS # 3.2 10^3/uL (1.5-8.5); NEUTROPHILS % 61.9 % (36.0-66.0); RED BLOOD COUNT 4.56 10^6/uL (4.30-6.10); WHITE BLOOD COUNT 5.2 10^3/uL (4.0-10.0)
[2024-08-08 12:47] LABS: HEMOGLOBIN A1c 5.6 % (4.0-6.0)
[2024-08-08 12:59] LABS: CREATININE, URINE 149.1 MG/DL; MAU/CREAT RATIO 11.4 MCG/MG (0.0-30.0)
[2024-08-08 13:00] LABS: ALBUMIN 3.7 G/DL (3.2-5.2); BILIRUBIN,TOTAL 0.4 MG/DL (0.3-1.2); CALCIUM LEVEL 8.5 MG/DL (8.3-10.6); CHOLESTEROL RISK RATIO 2.17 (<5); CREATININE FOR GFR 1.23 MG/DL (0.70-1.30); GLOMERULAR FILTRATION RATE 58.3 (>35); HDL CHOLESTEROL 58.5 MG/DL (>40); LDL CHOLESTEROL 57.7 MG/DL (<100); NON-HDL-C 68.5 MG/DL; POTASSIUM SERUM 4.6 MMOL/L (3.5-5.1); TOTAL PROTEIN 6.1 G/DL (5.7-8.2)
[2024-08-08 13:02] LABS: THYROID STIMULATING HORMONE 3.899 uIU/ML (0.55-4.78)
[2024-08-08 13:03] LABS: FREE T4 1.59 NG/DL (0.89-1.76)
== END ==
LOC: M SFHCCLAY 08:21
PROVIDERS: ATTEND Student in an Organized Health Care Education/Training Program
DX: I10 Essential (primary) hypertension (principal); I48.92 Unspecified atrial flutter; E78.00 Pure hypercholesterolemia, unspecified; Z79.899 Other long term (current) drug therapy

== ENCOUNTER → 2025-01-02 | Outpatient (CLI) | payer MEDICARE ==
[~2025-01-02] MED LIST changes: +ACET-1515 PO; -ACET650T15 PO
== END ==
LOC: M RAD 12:14
PROVIDERS: ATTEND Family Medicine
DX: T14.8XXA Other injury of unspecified body region, initial encounter (principal); Z53.9 Procedure and treatment not carried out, unspecified reason

== ENCOUNTER → 2025-01-06 | Outpatient (REF) | payer MEDICARE | LOC: M SFHCPLAZ 16:03 | PROVIDERS: ATTEND Family Medicine | DX: N18.31 Chronic kidney disease, stage 3a (principal); Z53.9 Procedure and treatment not carried out, unspecified reason ==

== ENCOUNTER → 2025-01-12 | Outpatient (REF) | payer MEDICARE ==
[2025-01-12 19:28] LABS: CALCIUM LEVEL 8.6 MG/DL (8.3-10.6); CARBON DIOXIDE LEVEL 29.0 MMOL/L (20-31); CHLORIDE LEVEL 107.0 MMOL/L (98-107); CREATININE FOR GFR 1.17 MG/DL (0.70-1.30); GLOMERULAR FILTRATION RATE 61.9 (>35); POTASSIUM SERUM 4.4 MMOL/L (3.5-5.1); SODIUM LEVEL 141.0 MMOL/L (136-145)
== END ==
LOC: M SFHCCLAY 10:30
PROVIDERS: ATTEND Family Medicine
DX: N18.31 Chronic kidney disease, stage 3a (principal)

== ENCOUNTER → 2025-01-16 | Outpatient (CLI) | payer MEDICARE ==
[~2025-01-16] MED LIST changes: +ISOVUE-370 76% 100 ML VIAL As Ordered ONE
== END ==
LOC: M RAD 14:26
PROVIDERS: ATTEND Family Medicine
DX: T14.8XXA Other injury of unspecified body region, initial encounter (principal)
CPT/HCPCS: 72193; Q9967

== ENCOUNTER → 2025-02-19 | Outpatient (REF) | payer MEDICARE ==
[~2025-02-19] MED LIST changes: -ISOVUE-370 76% 100 ML VIAL As Ordered ONE
[2025-02-19 18:32] LABS: ALT/SGPT 20.0 U/L (7.0-40); AST/SGOT 18.0 U/L (<34); CALCIUM LEVEL 9.0 MG/DL (8.3-10.6); CARBON DIOXIDE LEVEL 29.0 MMOL/L (20-31); CHLORIDE LEVEL 104.0 MMOL/L (98-107); CHOLESTEROL LEVEL 127.0 MG/DL (<200); CHOLESTEROL RISK RATIO 2.2 (<5); CREATININE FOR GFR 1.28 MG/DL (0.70-1.30); FREE T4 1.74 NG/DL (0.89-1.76); GLOMERULAR FILTRATION RATE 55.5 (>35); LDL CHOLESTEROL 54.7 MG/DL (<100); NON-HDL-C 69.3 MG/DL; POTASSIUM SERUM 4.4 MMOL/L (3.5-5.1); PROSTATIC SPECIFIC AG MONITOR 0.04 NG/ML (< 4.00); SODIUM LEVEL 143.0 MMOL/L (136-145); TRIGLYCERIDES LEVEL 73.0 MG/DL (<150)
== END ==
LOC: M SFHCPLAZ 09:02
PROVIDERS: ATTEND Family Medicine
DX: I10 Essential (primary) hypertension (principal); N18.31 Chronic kidney disease, stage 3a; E03.9 Hypothyroidism, unspecified; E78.00 Pure hypercholesterolemia, unspecified; Z85.46 Personal history of malignant neoplasm of prostate; Z23 Encounter for immunization
CPT/HCPCS: 80053; 80061; 84153; 84439; 84443; 85027; 90662; G0008; G0463